=== PATIENT | female | born 1950 | race Caucasian/White ===

== ENCOUNTER 2017-10-10 07:46 | Emergency (ER) | payer MEDICARE ==
[~2017-10-10] VITALS: Ht 157.5 cm; Wt 50.0 kg
[~2017-10-10 07:46] MED LIST: ALB0.5UD IH; ALPR-623 PO; BUDE10.2 INH; GUAI100L97 PO; IPRA3AMP IH; SPIIN INH
[2017-10-10] MEDS ORDERED: DOXY100C43 PO (08:28)
[2017-10-10] MEDS ORDERED: PRED5TAB PO (08:28)
[2017-10-10] MEDS ORDERED: dexamethasone 4mg tablet PO ONE (08:30)
[2017-10-10] MEDS ORDERED: ipratropium/albuterol 3ml nebule NEB ONE (08:30)
[2017-10-10 09:26] VITALS: BP 142/81
== END 2017-10-10 09:28 | disposition home or self-care (01) ==
LOC: ER 07:47
DX: J44.1 Chronic obstructive pulmonary disease with (acute) exacerbation (principal); Z88.5 Allergy status to narcotic agent
CPT/HCPCS: 71046; 93005; 94640; 94760; 99284; J8540

== ENCOUNTER 2019-12-09 08:42 | Emergency (ER) | payer MEDICARE ==
[~2019-12-09] VITALS: Ht 157.5 cm; Wt 43.6 kg
[~2019-12-09 08:42] MED LIST changes: -IPRA3AMP IH; +IPRA3AMP31 IH; +PRED5TAB PO
[2019-12-09 08:50] VITALS: BP 166/102
--- NOTE | 2019-12-09 10:02 | NUR ---
Pt complains of rt ear pain and phlem in her throat that has not resolved for approx 1 month.
[2019-12-09] MEDS ORDERED: PRED20TA PO (10:41)
[2019-12-09] MEDS ORDERED: DOXY100C77 PO (10:41)
== END 2019-12-09 11:48 | disposition home or self-care (01) ==
LOC: ER 08:42
DX: J44.1 Chronic obstructive pulmonary disease with (acute) exacerbation (principal); Z20.828 Contact with and (suspected) exposure to other viral communicable diseases; Z72.89 Other problems related to lifestyle; Z88.5 Allergy status to narcotic agent; Z79.899 Other long term (current) drug therapy; Z03.818 Encounter for observation for suspected exposure to other biological agents ruled out
CPT/HCPCS: 36415; 71045; 99284; U0003

== ENCOUNTER 2020-01-31 20:33 | Inpatient (IN) | payer MEDICARE ==
[~2020-01-31] VITALS: Ht 162.6 cm; Wt 44.5 kg
[~2020-01-31 20:33] MED LIST changes: -APIX5TAB3 PO; -ATOR40TA72 PO; -FLUT1BLS4 PO; -MONT10TA26 PO; -fentaNYL/PF 50MCG/1 ML 2ML syringe ONE; -iohexol 300mg/ml 100ml inj. ONE; -methylPREDNISolone sod succ 125mg/2ml vial IV ONE; -midazolam 2 mg/2 ml injection ONE; -racepinephrine 11.25mg/0.5ml nebule IH ONE
[2020-01-31] MEDS ORDERED: normal saline 1000ml 1,000 ML IV SCH (21:59)
[2020-01-31 22:00] VITALS: BP 95/53
[2020-01-31] MEDS ORDERED: LIDOcaine 2% 10ml TOPICAL JELLY (Urojet) TP ONE (22:00)
[2020-01-31] MEDS ORDERED: potassium Cl 20 mEq SR tablet PO PRN ×2 (22:00)
[2020-01-31] MEDS ORDERED: acetaminophen 650mg rectal suppository RC PRN (22:00)
[2020-01-31] MEDS ORDERED: acetaminophen 325mg tablet PO PRN ×2 (22:00)
[2020-01-31] MEDS ORDERED: magnesium hydroxide 30ml (MOM) UD suspension PO PRN (22:00)
[2020-01-31] MEDS ORDERED: morphine 4 MG/ML inj SYRINge IV PRN (22:00)
[2020-01-31] MEDS ORDERED: ondansetron/PF 4mg/2ml inj IV PRN (22:00)
--- NOTE | 2020-01-31 22:27 | NUR ---
Pt received in room 2044. Awake & alert. New tracheostomy #8 portex uncuffed. Secure with trach ties, On 40% cool aerosol face mask @ 8Liters oxygen flow. Lungs clear with decreased breath sounds. Peripheral IV # 20 left F/A LR infusing at 100ml/hr. Rhythm is sinus with PAC's. Radial/pedal pulses weak, capillary refill is brisk to all nail beds. Right F/A with #20G saline lock. Denies pain.Skin is intact. No distress. Addendum: 02/01/20 at 0354 by Perri Silva RN Oxygen is via humidified trach collar, not humidified face mask 40% FIO2.
[2020-01-31] MEDS: K, MAG and/or Phos replacement - Verify level? MC SCH (22:30)
--- NOTE | 2020-01-31 22:30 | NUR ---
Patient in room ICU 2044. I have received report from DENICE Dang RN and had the opportunity to ask questions and assume patient care. Pt transferred from [facility] S/P tracheostomy placement.
[2020-01-31 23:00] VITALS: BP 108/59
[2020-02-01] VITALS (24 sets, daily range): BP systolic 106–159; BP diastolic 59–82
--- NOTE | 2020-02-01 03:00 | NUR ---
Voided 300 ml via bedpan.
[2020-02-01] MEDS: morphine 2 MG/ML inj. syringe IV PRN ×3 (04:58→15:54)
[2020-02-01 05:11] LABS: BASOPHILS % (AUTO) 0.2 % (0-1); EOSINOPHILS % (AUTO) 0 % (0-6); HEMATOCRIT 40.9 % (35.0-45.0); HEMOGLOBIN 13.3 g/dl (12.0-16.0); LYMPHOCYTES # (AUTO) 0.4 X10'3 (1.1-4.8); MEAN CORPUSCULAR HEMOGLOBIN 30.6 PG (27.0-31.0); MEAN CORPUSCULAR HGB CONC 32.6 g/dL (33.0-36.5); MEAN PLATELET VOLUME 9.1 FL (7.4-10.4); MONOCYTES # (AUTO) 0.3 X10'3 (0-0.9); MONOCYTES % (AUTO) 3.3 % (2-12); NEUTROPHILS # (AUTO) 7.2 X10'3 (1.8-7.7); NEUTROPHILS % (AUTO) 91.5 % (42-75); PLATELET COUNT 274 X10'3 (140-440); RED BLOOD COUNT 4.35 X10'6 (4.20-5.60); WHITE BLOOD COUNT 7.8 X10'3 (4.5-11.0)
[2020-02-01 05:36] LABS: ALANINE AMINOTRANSFERASE 23 U/L (12-78); ALBUMIN 3.1 G/DL (3.4-5.0); ALKALINE PHOSPHATASE 76 IU/L (46-116); ANION GAP 7 (8-16); ASPARTATE AMINO TRANSFERASE 16 U/L (10-37); BILIRUBIN,TOTAL 0.4 MG/DL (0.1-1.0); BLOOD UREA NITROGEN 16 MG/DL (7-18); BUN/CREATININE RATIO 21.6 (6.6-38.0); CHLORIDE 106 MMOL/L (99-107); CREATININE 0.74 MG/DL (0.40-0.90); GLUCOSE 116 MG/DL (70-104); PHOSPHORUS 4.3 MG/DL (2.3-4.5); POTASSIUM 4.7 MMOL/L (3.5-5.1); SODIUM 142 MMOL/L (135-145); TOTAL CARBON DIOXIDE 29.4 MMOL/L (24-32); TOTAL PROTEIN 6.3 G/DL (6.4-8.2); eGFR 77 ML/MIN
--- NOTE | 2020-02-01 06:10 | NUR ---
Received report from Perri SHARIF, [facility].
--- NOTE | 2020-02-01 06:15 | NUR ---
Problems reprioritized. Patient report given, questions answered & plan of care reviewed with Collette SHARIF.
[2020-02-01] MEDS: K, MAG and/or Phos replacement - Verify level? MC SCH (06:58)
--- NOTE | 2020-02-01 07:50 | NUR ---
Dr. Yovani diaz, received orders.
[2020-02-01] MEDS ORDERED: dextrose 5%-normal saline 1,000 ML IV SCH (08:25)
--- NOTE | 2020-02-01 08:40 | NUR ---
CALLED DR. JASSO TO MAKE AWARE OF CUFF INFLATION ORDER NEEDS. DIRECTED STAFF TO CALL THE WHO PERFORMED HER SURGERY. MADE DR. GALEAS AWARE.
[2020-02-01] MEDS ORDERED: ALPRAZolam 0.25mg tablet PO PRN (09:10)
[2020-02-01] MEDS ORDERED: predniSONE 5mg tablet PO SCH (09:10)
[2020-02-01] MEDS ORDERED: albuterol 2.5 MG/3 ML nebule NEB PRN (09:10)
[2020-02-01] MEDS: pantoprazole 40 MG vial IV SCH (09:12)
--- NOTE | 2020-02-01 10:23 | NUR ---
PLACED CORPAK AT THIS TIME, TOLERATED WELL, PENDING XRAY TO CONFIRM PLACEMENT.
[2020-02-01] MEDS ORDERED: MONT10TA26 PO (10:33)
[2020-02-01] MEDS ORDERED: ATOR40TA72 PO (10:33)
[2020-02-01] MEDS ORDERED: APIX5TAB3 PO (10:34)
[2020-02-01] MEDS ORDERED: FLUT1BLS4 PO (10:39)
[2020-02-01] MEDS ORDERED: BUDE10.2 INH (10:40)
[2020-02-01] MEDS ORDERED: acetaminophen 325mg tablet CORPAK PRN (10:47)
[2020-02-01] MEDS ORDERED: ALPRAZolam 0.25mg tablet CORPAK PRN (10:47)
[2020-02-01] MEDS ORDERED: potassium Cl 20 mEq SR tablet CORPAK PRN ×2 (10:48)
[2020-02-01] MEDS ORDERED: magnesium hydroxide 30ml (MOM) UD suspension CORPAK PRN (10:48)
[2020-02-01 11:55] LABS: PREALBUMIN 20.5 MG/DL (19-36)
--- NOTE | 2020-02-01 12:57 | NUR ---
PAGED XRAY TO COME PERFORM REPEAT KUB FOR CORPAK PLACEMENT.
--- NOTE | 2020-02-01 13:16 | NUR ---
Tube feeding consult. Patient pending corpak placement for nutrition. She is s/p tracheostomy d/t subglottic stenosis. Pending transfer to [facility] when bed available. Recommend: 1. Pending corpak placement, when placed and confirmed recommend continuous tube feeding using Jevity 1.2 at 50 ml/hr. Start at 30 ml and advance by 20 ml q 8 hours to goal rate. Will provide total of 1200 ml, 1440 ml, 67 g protein, 968 ml. 2. Prealbumin q saturday and 3. daily wts 2. additional water flush 100 ml q 4 hours 3. Prealbumin q saturday/, daily weights Addendum: 02/01/20 at [address] Amended: Links added.
[2020-02-01] MEDS ORDERED: albuterol 2.5 MG/3 ML nebule NEB SCH (15:00)
[2020-02-01] MEDS: ipratropium/albuterol 3ml nebule IH SCH ×2 (15:08→20:50)
[2020-02-01] MEDS ORDERED: predniSONE 5mg tablet PO STA (15:19)
[2020-02-01] MEDS ORDERED: predniSONE 5mg tablet CORPAK ONE (15:25)
[2020-02-01] MEDS: guaiFENesin 200mg/10ml UD cup CORPAK SCH ×2 (15:26→20:43)
--- NOTE | 2020-02-01 15:40 | NUR ---
CONFIRMED CORRECT PLACEMENT VIA XRAY, AUSCULTATED ABDOMEN AND CHECKED PLACEMENT WITH ZERO RESIDUAL ON CORPAK, STARTED JEVITY 1.2 @ 30 ML/HR VIA CORPAK AT THIS TIME, WILL CONT. TO MONITOR.
--- NOTE | 2020-02-01 16:13 | NUR ---
OFFERED BSC TO PATIENT, DENIES NEED TO USE. WILL CONT. TO MONITOR. PATIENT HAS HAD AN ESTIMATED 300 ML OUT VIA BSC.
--- NOTE | 2020-02-01 16:27 | NUR ---
SPOKE WITH DR. GALEAS, CLARIFIED IVF'S NECESSITY IN ADDITION TO TF. DISCONTINUED D5NS AT THIS TIME.
--- NOTE | 2020-02-01 18:11 | NUR ---
Patient in room ICU 2044. I have received report from Collette SHARIF and had the opportunity to ask questions and assume patient care. Pt received awake & alert. On 30% FIO2 via humidified trach collar. #8 portex tracheostomy is un cuffed. Oxygen saturation is 99% RR 20/min. Suctioned via trach with inline catheter, secretions are stringy bloody small amount. Cough is strong. Rhythm is Sinus Hr 90/min. Corpak to right nares with Jevity 1.2 enteric feedings at 30ml/hr. HOB elevated 40 degrees. No distress at change of shift.
--- NOTE | 2020-02-01 18:15 | NUR ---
GAVE REPORT TO ALAN SHARIF, TRANSFERRED CARE.
--- NOTE | 2020-02-01 19:00 | NUR ---
Suctioned for small amount of thin blood tinged secretions. Strong cough. Saturates 99% on 30 % FIO2 via humidified trach collar.
[2020-02-01] MEDS ORDERED: non-formulary drug (Budesonide/Formoterol Fumarate (Symbicort 160-4.5 Mcg Inhaler) 2 PUFFS INH SCH (20:00)
[2020-02-01] MEDS: montelukast 10mg tablet CORPAK SCH (20:42)
[2020-02-01] MEDS: budesonide 0.5mg/2ml UD nebule IH SCH (20:50)
[2020-02-02] VITALS (17 sets, daily range): BP systolic 100–155; BP diastolic 57–89
[2020-02-02] MEDS: guaiFENesin 200mg/10ml UD cup CORPAK SCH ×5 (02:00→20:39)
--- NOTE | 2020-02-02 03:00 | NUR ---
Up to BSC voided 300ml. Tolerated activity well, independent.
[2020-02-02] MEDS: ipratropium/albuterol 3ml nebule IH SCH ×4 (03:27→20:31)
[2020-02-02] MEDS: acetaminophen 325mg tablet CORPAK PRN ×2 (04:42→17:28)
--- NOTE | 2020-02-02 04:47 | NUR ---
Slept for short intervals during the night. Maintains oxygen saturations 99% on 30% FIO2 via humidified trach collar. Strong cough producing pale yellow sputum. Remains in sinus rhythm with a noted PVC. Tolerating tube feedings @ goal rate, aspiration precautions observed. Up to BSC x2 during the night to urinate, tolerated activity well. C/O mild headache tylenol given.
[2020-02-02 05:37] LABS: ALANINE AMINOTRANSFERASE 21 U/L (12-78); ALBUMIN/GLOBULIN RATIO 1.1 (1.1-1.5); ALKALINE PHOSPHATASE 66 IU/L (46-116); ANION GAP 5 (8-16); ASPARTATE AMINO TRANSFERASE 13 U/L (10-37); BILIRUBIN,TOTAL 0.5 MG/DL (0.1-1.0); BLOOD UREA NITROGEN 12 MG/DL (7-18); BUN/CREATININE RATIO 17.9 (6.6-38.0); CALCIUM 8.5 MG/DL (8.5-10.1); CHLORIDE 107 MMOL/L (99-107); CREATININE 0.67 MG/DL (0.40-0.90); GLUCOSE 110 MG/DL (70-104); MAGNESIUM 2.1 MG/DL (1.5-2.4); POTASSIUM 4.1 MMOL/L (3.5-5.1); SODIUM 142 MMOL/L (135-145); TOTAL CARBON DIOXIDE 29.9 MMOL/L (24-32); TOTAL PROTEIN 5.8 G/DL (6.4-8.2); eGFR 87 ML/MIN
[2020-02-02 05:58] LABS: BASOPHILS % (AUTO) 0.1 % (0-1); EOSINOPHILS % (AUTO) 0.1 % (0-6); HEMATOCRIT 38.7 % (35.0-45.0); HEMOGLOBIN 12.5 g/dl (12.0-16.0); LYMPHOCYTES # (AUTO) 0.7 X10'3 (1.1-4.8); LYMPHOCYTES % (AUTO) 6.2 % (21-51); MEAN CORPUSCULAR HEMOGLOBIN 30.6 PG (27.0-31.0); MEAN CORPUSCULAR HGB CONC 32.4 g/dL (33.0-36.5); MEAN CORPUSCULAR VOLUME 94.4 FL (78-98); MONOCYTES # (AUTO) 0.8 X10'3 (0-0.9); NEUTROPHILS # (AUTO) 10.4 X10'3 (1.8-7.7); NEUTROPHILS % (AUTO) 86.6 % (42-75); PLATELET COUNT 242 X10'3 (140-440); RED CELL DISTRIBUTION WIDTH 17.4 % (11.5-14.5)
--- NOTE | 2020-02-02 06:20 | NUR ---
Received report from Perri SHARIF, [facility].
--- NOTE | 2020-02-02 06:23 | NUR ---
Problems reprioritized. Patient report given, questions answered & plan of care reviewed with Collette SHAIRF.
--- NOTE | 2020-02-02 07:20 | NUR ---
SPOKE TO DR. GALEAS, MADE HIM AWARE THAT RECEIVING [facility] IS REQUIRING A COVID TEST PRIOR TO TRANSFER.
[2020-02-02] MEDS ORDERED: non-formulary drug (Tiotropium Bromide (SPIRIVA inhaler) 1 CAP) INH SCH (08:00)
[2020-02-02] MEDS: K, MAG and/or Phos replacement - Verify level? MC SCH (08:00)
[2020-02-02] MEDS: budesonide 0.5mg/2ml UD nebule IH SCH ×2 (08:09→20:31)
[2020-02-02] MEDS: pantoprazole 40 MG vial IV SCH (08:09)
[2020-02-02] MEDS: predniSONE 5mg tablet CORPAK SCH (08:09)
--- NOTE | 2020-02-02 08:33 | NUR ---
IMPROVEMENT NOTED TO PATIENTS SECRETIONS, NOTED CHANGE FROM SEROSANG IN COLOR TO RAYMOND/YELLOW. NOTED SUCTIONING IS NOT FREQUENT YESTERDAY AND O2 IS WEENING DOWN.
[2020-02-02] MEDS ORDERED: apixaban 5mg tablet PO SCH (10:30)
[2020-02-02] MEDS ORDERED: atorvastatin 20mg tablet PO SCH (10:31)
[2020-02-02] MEDS: levoFLOXACIN 500mg tablet PO ONE ×2 (10:33→11:44)
--- NOTE | 2020-02-02 12:20 | NUR ---
GAVE REPORT TO JEREMY SHARIF AT THIS TIME ON PCU, PATIENT TRANSFERRING TO ROOM3 018a
--- NOTE | 2020-02-02 12:36 | NUR ---
Patient in room ICU 2044. I have received report from Collette SHARIF and had the opportunity to ask questions and assume patient care.
--- NOTE | 2020-02-02 18:47 | NUR ---
Problems reprioritized. Patient report given, questions answered & plan of care reviewed with KOLE Guzman. Patient stable at transfer of care.
[2020-02-02] MEDS: montelukast 10mg tablet CORPAK SCH (20:39)
[2020-02-02] MEDS: apixaban 5mg tablet CORPAK SCH (20:39)
[2020-02-03] MEDS: guaiFENesin 200mg/10ml UD cup CORPAK SCH ×4 (01:50→21:05)
[2020-02-03] MEDS: ipratropium/albuterol 3ml nebule IH SCH ×4 (02:33→21:35)
[2020-02-03 03:00] VITALS: BP 141/79
[2020-02-03] MEDS: acetaminophen 325mg tablet CORPAK PRN ×2 (03:07→22:06)
[2020-02-03 06:00] VITALS: BP 117/65
[2020-02-03 06:03] LABS: BASOPHILS % (AUTO) 0.3 % (0-1); EOSINOPHILS # (AUTO) 0.1 X10'3 (0-0.9); EOSINOPHILS % (AUTO) 0.8 % (0-6); HEMATOCRIT 38.4 % (35.0-45.0); HEMOGLOBIN 12.7 g/dl (12.0-16.0); LYMPHOCYTES # (AUTO) 1.1 X10'3 (1.1-4.8); LYMPHOCYTES % (AUTO) 12.1 % (21-51); MEAN CORPUSCULAR HEMOGLOBIN 31.2 PG (27.0-31.0); MEAN CORPUSCULAR VOLUME 94.7 FL (78-98); MEAN PLATELET VOLUME 9.4 FL (7.4-10.4); MONOCYTES # (AUTO) 0.9 X10'3 (0-0.9); MONOCYTES % (AUTO) 9.2 % (2-12); NEUTROPHILS # (AUTO) 7.4 X10'3 (1.8-7.7); NEUTROPHILS % (AUTO) 77.6 % (42-75); PLATELET COUNT 221 X10'3 (140-440); RED BLOOD COUNT 4.05 X10'6 (4.20-5.60); RED CELL DISTRIBUTION WIDTH 17.2 % (11.5-14.5); WHITE BLOOD COUNT 9.5 X10'3 (4.5-11.0)
[2020-02-03 06:26] LABS: ALANINE AMINOTRANSFERASE 20 U/L (12-78); ALBUMIN 2.8 G/DL (3.4-5.0); ALBUMIN/GLOBULIN RATIO 0.9 (1.1-1.5); ALKALINE PHOSPHATASE 66 IU/L (46-116); ANION GAP 6 (8-16); ASPARTATE AMINO TRANSFERASE 12 U/L (10-37); BILIRUBIN,TOTAL 0.5 MG/DL (0.1-1.0); BLOOD UREA NITROGEN 10 MG/DL (7-18); BUN/CREATININE RATIO 14.9 (6.6-38.0); CALCIUM 8.3 MG/DL (8.5-10.1); CHLORIDE 106 MMOL/L (99-107); CREATININE 0.67 MG/DL (0.40-0.90); GLUCOSE 139 MG/DL (70-104); POTASSIUM 3.5 MMOL/L (3.5-5.1); SODIUM 141 MMOL/L (135-145); TOTAL CARBON DIOXIDE 28.8 MMOL/L (24-32); eGFR 87 ML/MIN
--- NOTE | 2020-02-03 06:31 | NUR ---
Patient in room PCU 3022. I have received report from Christy SHARIF and had the opportunity to ask questions and assume patient care.
[2020-02-03] MEDS: budesonide 0.5mg/2ml UD nebule IH SCH ×2 (07:55→21:35)
[2020-02-03] MEDS: K, MAG and/or Phos replacement - Verify level? MC SCH (08:00)
[2020-02-03] MEDS: pantoprazole 40 MG vial IV SCH (08:13)
[2020-02-03] MEDS: atorvastatin 20mg tablet CORPAK SCH (08:14)
[2020-02-03] MEDS: apixaban 5mg tablet CORPAK SCH ×2 (08:14→21:04)
[2020-02-03] MEDS: predniSONE 5mg tablet CORPAK SCH (08:14)
[2020-02-03] MEDS: morphine 2 MG/ML inj. syringe IV PRN (08:15)
[2020-02-03 11:00] VITALS: BP 112/64
[2020-02-03] MEDS ORDERED: levoFLOXACIN 500mg tablet CORPAK SCH (11:00)
[2020-02-03 18:00] VITALS: BP 146/73
--- NOTE | 2020-02-03 18:26 | NUR ---
Patient in room PCU 3022. I have received report from Andreas SHARIF and had the opportunity to ask questions and assume patient care.
--- NOTE | 2020-02-03 18:27 | NUR ---
Problems reprioritized. Patient report given, questions answered & plan of care reviewed with Hector SHARIF.
[2020-02-03] MEDS: lactobacillus rhamnosus 10,000 MMU CELLS/CAPSULE PO SCH (21:05)
[2020-02-03] MEDS: montelukast 10mg tablet CORPAK SCH (21:05)
[2020-02-03 22:00] VITALS: BP 138/74
[2020-02-04 02:19] VITALS: BP 138/74
[2020-02-04] MEDS: guaiFENesin 200mg/10ml UD cup CORPAK SCH ×4 (02:23→20:00)
[2020-02-04] MEDS: ipratropium/albuterol 3ml nebule IH SCH ×3 (03:06→20:59)
[2020-02-04 05:51] LABS: BASOPHILS % (AUTO) 0.4 % (0-1); EOSINOPHILS # (AUTO) 0.1 X10'3 (0-0.9); EOSINOPHILS % (AUTO) 1.5 % (0-6); HEMATOCRIT 40.2 % (35.0-45.0); HEMOGLOBIN 13.1 g/dl (12.0-16.0); LYMPHOCYTES # (AUTO) 1.2 X10'3 (1.1-4.8); LYMPHOCYTES % (AUTO) 14.8 % (21-51); MEAN CORPUSCULAR HEMOGLOBIN 31.3 PG (27.0-31.0); MEAN CORPUSCULAR HGB CONC 32.6 g/dL (33.0-36.5); MEAN CORPUSCULAR VOLUME 95.8 FL (78-98); MEAN PLATELET VOLUME 9.3 FL (7.4-10.4); MONOCYTES # (AUTO) 0.9 X10'3 (0-0.9); NEUTROPHILS % (AUTO) 72.3 % (42-75); PLATELET COUNT 242 X10'3 (140-440); RED CELL DISTRIBUTION WIDTH 17.2 % (11.5-14.5); WHITE BLOOD COUNT 8.3 X10'3 (4.5-11.0)
[2020-02-04 06:00] VITALS: BP 132/71
[2020-02-04 06:00] LABS: ALANINE AMINOTRANSFERASE 18 U/L (12-78); ALBUMIN 2.8 G/DL (3.4-5.0); ALBUMIN/GLOBULIN RATIO 0.9 (1.1-1.5); ALKALINE PHOSPHATASE 67 IU/L (46-116); ANION GAP 3 (8-16); ASPARTATE AMINO TRANSFERASE 12 U/L (10-37); BILIRUBIN,TOTAL 0.5 MG/DL (0.1-1.0); BLOOD UREA NITROGEN 11 MG/DL (7-18); BUN/CREATININE RATIO 14.3 (6.6-38.0); CALCIUM 8.5 MG/DL (8.5-10.1); CHLORIDE 104 MMOL/L (99-107); CREATININE 0.77 MG/DL (0.40-0.90); GLUCOSE 75 MG/DL (70-104); MAGNESIUM 2.1 MG/DL (1.5-2.4); PHOSPHORUS 3.8 MG/DL (2.3-4.5); POTASSIUM 3.6 MMOL/L (3.5-5.1); PREALBUMIN 15.6 MG/DL (19-36); SODIUM 142 MMOL/L (135-145); TOTAL CARBON DIOXIDE 34.9 MMOL/L (24-32); eGFR 74 ML/MIN
--- NOTE | 2020-02-04 06:18 | NUR ---
Problems reprioritized. Patient report given, questions answered & plan of care reviewed with Astrid SHARIF.
--- NOTE | 2020-02-04 06:20 | NUR ---
Patient in room PCU 3022. I have received report from KOLE Young and had the opportunity to ask questions and assume patient care.
--- NOTE | 2020-02-04 06:55 | NUR ---
Patient in room PCU 3022. I have received report from Hector SHARIF and had the opportunity to ask questions and assume patient care.
[2020-02-04] MEDS: atorvastatin 20mg tablet CORPAK SCH (07:59)
[2020-02-04] MEDS: lactobacillus rhamnosus 10,000 MMU CELLS/CAPSULE PO SCH ×2 (07:59→21:47)
[2020-02-04] MEDS: apixaban 5mg tablet CORPAK SCH ×2 (07:59→21:47)
[2020-02-04] MEDS: predniSONE 5mg tablet CORPAK SCH (07:59)
[2020-02-04] MEDS: K, MAG and/or Phos replacement - Verify level? MC SCH (08:00)
[2020-02-04] MEDS: pantoprazole 40 MG vial IV SCH (08:00)
[2020-02-04] MEDS: budesonide 0.5mg/2ml UD nebule IH SCH ×2 (08:24→20:59)
[2020-02-04 11:00] VITALS: BP 110/60
[2020-02-04] MEDS: acetaminophen 325mg tablet CORPAK PRN ×2 (12:30→21:49)
[2020-02-04 15:00] VITALS: BP 126/71
[2020-02-04 18:00] VITALS: BP 125/81
--- NOTE | 2020-02-04 18:07 | NUR ---
Patient in room PCU 3022. I have received report from Astrid SHARIF and had the opportunity to ask questions and assume patient care.
--- NOTE | 2020-02-04 18:13 | NUR ---
Problems reprioritized. Patient report given, questions answered & plan of care reviewed with KOLE Young.
[2020-02-04] MEDS: montelukast 10mg tablet CORPAK SCH (21:47)
[2020-02-04 22:00] VITALS: BP 134/80
[2020-02-05 02:00] VITALS: BP 134/80
[2020-02-05] MEDS: guaiFENesin 200mg/10ml UD cup CORPAK SCH ×4 (02:00→20:43)
[2020-02-05] MEDS: ipratropium/albuterol 3ml nebule IH SCH ×4 (02:40→20:03)
[2020-02-05 05:28] LABS: BASOPHILS % (AUTO) 0.7 % (0-1); EOSINOPHILS # (AUTO) 0.1 X10'3 (0-0.9); EOSINOPHILS % (AUTO) 2.2 % (0-6); HEMATOCRIT 39.7 % (35.0-45.0); HEMOGLOBIN 12.7 g/dl (12.0-16.0); LYMPHOCYTES # (AUTO) 1.5 X10'3 (1.1-4.8); LYMPHOCYTES % (AUTO) 21.4 % (21-51); MEAN CORPUSCULAR HEMOGLOBIN 30.4 PG (27.0-31.0); MEAN CORPUSCULAR VOLUME 94.7 FL (78-98); MEAN PLATELET VOLUME 9.1 FL (7.4-10.4); MONOCYTES # (AUTO) 0.8 X10'3 (0-0.9); MONOCYTES % (AUTO) 11.2 % (2-12); NEUTROPHILS # (AUTO) 4.4 X10'3 (1.8-7.7); NEUTROPHILS % (AUTO) 64.5 % (42-75); PLATELET COUNT 256 X10'3 (140-440); RED BLOOD COUNT 4.19 X10'6 (4.20-5.60); RED CELL DISTRIBUTION WIDTH 16.5 % (11.5-14.5); WHITE BLOOD COUNT 6.8 X10'3 (4.5-11.0)
[2020-02-05 05:53] LABS: ALANINE AMINOTRANSFERASE 20 U/L (12-78); ALBUMIN 2.6 G/DL (3.4-5.0); ALBUMIN/GLOBULIN RATIO 0.8 (1.1-1.5); ALKALINE PHOSPHATASE 66 IU/L (46-116); ANION GAP 2 (8-16); ASPARTATE AMINO TRANSFERASE 13 U/L (10-37); BILIRUBIN,TOTAL 0.4 MG/DL (0.1-1.0); BLOOD UREA NITROGEN 13 MG/DL (7-18); BUN/CREATININE RATIO 17.3 (6.6-38.0); CALCIUM 8.6 MG/DL (8.5-10.1); CHLORIDE 104 MMOL/L (99-107); CREATININE 0.75 MG/DL (0.40-0.90); GLUCOSE 91 MG/DL (70-104); MAGNESIUM 2.1 MG/DL (1.5-2.4); PHOSPHORUS 3.7 MG/DL (2.3-4.5); POTASSIUM 4.2 MMOL/L (3.5-5.1); SODIUM 141 MMOL/L (135-145); TOTAL PROTEIN 5.8 G/DL (6.4-8.2); eGFR 76 ML/MIN
[2020-02-05 06:00] VITALS: BP 105/76
--- NOTE | 2020-02-05 06:00 | NUR ---
Patient in room PCU 3022. I have received report from Hector SHARIF and had the opportunity to ask questions and assume patient care.
--- NOTE | 2020-02-05 06:31 | NUR ---
Problems reprioritized. Patient report given, questions answered & plan of care reviewed with Radha SHARIF.
[2020-02-05] MEDS: budesonide 0.5mg/2ml UD nebule IH SCH ×2 (07:48→20:03)
[2020-02-05] MEDS: K, MAG and/or Phos replacement - Verify level? MC SCH (08:00)
[2020-02-05] MEDS: lactobacillus rhamnosus 10,000 MMU CELLS/CAPSULE PO SCH ×2 (08:25→20:41)
[2020-02-05] MEDS: pantoprazole 40 MG vial IV SCH (08:25)
[2020-02-05] MEDS: atorvastatin 20mg tablet CORPAK SCH (08:25)
[2020-02-05] MEDS: predniSONE 5mg tablet CORPAK SCH (08:26)
[2020-02-05] MEDS: apixaban 5mg tablet CORPAK SCH ×2 (08:26→20:41)
[2020-02-05 11:00] VITALS: BP 118/77
[2020-02-05 15:00] VITALS: BP 111/71
--- NOTE | 2020-02-05 15:20 | NUR ---
Reassessment: Pt previously tolerating TF at goal rate with GRV WNL however per MD notes Corpak came out last night. D/w RN who reports MD did not want Corpak to be replaced d/t planned BSS. Pt s/p BSS today with [facility] pureed food and thin liquids. PO diet has been advanced as such and pt documented with 50% PO intake first meal. Per RN pt tolerated with no issues. LB 02/03. Will continue to follow closely and monitor need for ONS pending further trends in PO intake. Recommend: 1. Continue pureed food with thin liquids per [facility] 2. Monitor need for ONS pending further trends in PO intake 3. Bowel care PRN 4. Scaled weights per rx Addendum: 02/05/20 at [address] Amended: Links added.
[2020-02-05 18:00] VITALS: BP 116/65
--- NOTE | 2020-02-05 18:00 | NUR ---
Problems reprioritized. Patient report given, questions answered & plan of care reviewed with Hector SHARIF.
--- NOTE | 2020-02-05 18:08 | NUR ---
Patient in room PCU 3022. I have received report from Isa SHARIF and had the opportunity to ask questions and assume patient care.
--- NOTE | 2020-02-05 18:15 | NUR ---
Problems reprioritized. Patient report given, questions answered & plan of care reviewed with Hector SHARIF.
[2020-02-05] MEDS: acetaminophen 325mg tablet CORPAK PRN (20:41)
[2020-02-05] MEDS: montelukast 10mg tablet CORPAK SCH (20:42)
[2020-02-05 22:00] VITALS: BP 144/92
[2020-02-06 02:00] VITALS: BP 131/83
[2020-02-06] MEDS: ipratropium/albuterol 3ml nebule IH SCH ×4 (02:12→19:59)
[2020-02-06] MEDS: guaiFENesin 200mg/10ml UD cup CORPAK SCH ×2 (02:51→08:11)
[2020-02-06 06:00] VITALS: BP 134/83
--- NOTE | 2020-02-06 06:10 | NUR ---
Problems reprioritized. Patient report given, questions answered & plan of care reviewed with Radha SHARIF.
--- NOTE | 2020-02-06 06:20 | NUR ---
Patient in room PCU 3022. I have received report from Hector SHARIF and had the opportunity to ask questions and assume patient care.
[2020-02-06 06:33] LABS: BASOPHILS % (AUTO) 0.8 % (0-1); EOSINOPHILS # (AUTO) 0.1 X10'3 (0-0.9); EOSINOPHILS % (AUTO) 2.6 % (0-6); HEMATOCRIT 37.9 % (35.0-45.0); HEMOGLOBIN 12.5 g/dl (12.0-16.0); LYMPHOCYTES # (AUTO) 1.5 X10'3 (1.1-4.8); LYMPHOCYTES % (AUTO) 26.4 % (21-51); MEAN CORPUSCULAR HEMOGLOBIN 30.9 PG (27.0-31.0); MEAN CORPUSCULAR HGB CONC 32.9 g/dL (33.0-36.5); MEAN CORPUSCULAR VOLUME 93.9 FL (78-98); MEAN PLATELET VOLUME 9.5 FL (7.4-10.4); MONOCYTES # (AUTO) 0.6 X10'3 (0-0.9); MONOCYTES % (AUTO) 11.2 % (2-12); NEUTROPHILS # (AUTO) 3.4 X10'3 (1.8-7.7); PLATELET COUNT 268 X10'3 (140-440); RED BLOOD COUNT 4.04 X10'6 (4.20-5.60); RED CELL DISTRIBUTION WIDTH 16.6 % (11.5-14.5); WHITE BLOOD COUNT 5.7 X10'3 (4.5-11.0)
[2020-02-06 06:48] LABS: ALANINE AMINOTRANSFERASE 18 U/L (12-78); ALBUMIN 2.7 G/DL (3.4-5.0); ALBUMIN/GLOBULIN RATIO 0.9 (1.1-1.5); ALKALINE PHOSPHATASE 65 IU/L (46-116); ANION GAP 1 (8-16); ASPARTATE AMINO TRANSFERASE 13 U/L (10-37); BILIRUBIN,TOTAL 0.5 MG/DL (0.1-1.0); BLOOD UREA NITROGEN 12 MG/DL (7-18); BUN/CREATININE RATIO 15.6 (6.6-38.0); CALCIUM 8.8 MG/DL (8.5-10.1); CHLORIDE 104 MMOL/L (99-107); CREATININE 0.77 MG/DL (0.40-0.90); GLUCOSE 85 MG/DL (70-104); MAGNESIUM 2.1 MG/DL (1.5-2.4); PHOSPHORUS 4.1 MG/DL (2.3-4.5); POTASSIUM 4.2 MMOL/L (3.5-5.1); SODIUM 140 MMOL/L (135-145); TOTAL CARBON DIOXIDE 34.6 MMOL/L (24-32); TOTAL PROTEIN 5.7 G/DL (6.4-8.2); eGFR 74 ML/MIN
[2020-02-06] MEDS: budesonide 0.5mg/2ml UD nebule IH SCH ×2 (07:47→19:58)
[2020-02-06] MEDS: K, MAG and/or Phos replacement - Verify level? MC SCH (08:00)
[2020-02-06] MEDS: acetaminophen 325mg tablet CORPAK PRN (08:10)
[2020-02-06] MEDS: pantoprazole 40 MG vial IV SCH (08:11)
[2020-02-06] MEDS: lactobacillus rhamnosus 10,000 MMU CELLS/CAPSULE PO SCH ×2 (08:11→20:32)
[2020-02-06] MEDS: apixaban 5mg tablet CORPAK SCH (08:11)
[2020-02-06] MEDS: predniSONE 5mg tablet CORPAK SCH (08:11)
[2020-02-06] MEDS: atorvastatin 20mg tablet CORPAK SCH (08:11)
[2020-02-06] MEDS ORDERED: ALPRAZolam 0.25mg tablet PO PRN (08:36)
[2020-02-06] MEDS ORDERED: acetaminophen 325mg tablet PO PRN (08:36)
[2020-02-06] MEDS ORDERED: potassium Cl 20 mEq SR tablet PO PRN ×2 (08:37)
[2020-02-06] MEDS ORDERED: magnesium hydroxide 30ml (MOM) UD suspension PO PRN (08:37)
[2020-02-06] MEDS ORDERED: predniSONE 5mg tablet PO SCH (08:37)
[2020-02-06 11:00] VITALS: BP 106/68
[2020-02-06] MEDS: guaiFENesin 200mg/10ml UD cup PO SCH ×2 (14:00→20:33)
[2020-02-06 15:00] VITALS: BP 114/66
[2020-02-06 18:00] VITALS: BP 132/70
--- NOTE | 2020-02-06 18:29 | NUR ---
Patient in room PCU 3022. I have received report from KOLE Garcia and had the opportunity to ask questions and assume patient care.
[2020-02-06] MEDS: acetaminophen 325mg tablet PO PRN (20:31)
[2020-02-06] MEDS: montelukast 10mg tablet PO SCH (20:32)
[2020-02-06] MEDS: apixaban 5mg tablet PO SCH (20:32)
[2020-02-06 22:00] VITALS: BP 133/77
[2020-02-07] MEDS: ipratropium/albuterol 3ml nebule IH SCH ×4 (02:32→20:17)
[2020-02-07] MEDS: guaiFENesin 200mg/10ml UD cup PO SCH ×4 (03:40→20:44)
[2020-02-07 06:12] LABS: BASOPHILS # (AUTO) 0.1 X10'3 (0-0.2); BASOPHILS % (AUTO) 0.8 % (0-1); EOSINOPHILS # (AUTO) 0.1 X10'3 (0-0.9); EOSINOPHILS % (AUTO) 1.3 % (0-6); HEMATOCRIT 36.5 % (35.0-45.0); HEMOGLOBIN 12.1 g/dl (12.0-16.0); LYMPHOCYTES # (AUTO) 1.6 X10'3 (1.1-4.8); LYMPHOCYTES % (AUTO) 24.4 % (21-51); MEAN CORPUSCULAR HEMOGLOBIN 30.8 PG (27.0-31.0); MEAN CORPUSCULAR HGB CONC 33.1 g/dL (33.0-36.5); MEAN CORPUSCULAR VOLUME 92.9 FL (78-98); MEAN PLATELET VOLUME 9.4 FL (7.4-10.4); MONOCYTES # (AUTO) 0.7 X10'3 (0-0.9); MONOCYTES % (AUTO) 10.3 % (2-12); NEUTROPHILS % (AUTO) 63.2 % (42-75); PLATELET COUNT 295 X10'3 (140-440); RED BLOOD COUNT 3.93 X10'6 (4.20-5.60); RED CELL DISTRIBUTION WIDTH 16.4 % (11.5-14.5); WHITE BLOOD COUNT 6.4 X10'3 (4.5-11.0)
[2020-02-07 06:20] LABS: ALANINE AMINOTRANSFERASE 19 U/L (12-78); ALBUMIN 2.7 G/DL (3.4-5.0); ALBUMIN/GLOBULIN RATIO 0.9 (1.1-1.5); ALKALINE PHOSPHATASE 62 IU/L (46-116); ANION GAP 4 (8-16); ASPARTATE AMINO TRANSFERASE 14 U/L (10-37); BILIRUBIN,TOTAL 0.3 MG/DL (0.1-1.0); BLOOD UREA NITROGEN 12 MG/DL (7-18); BUN/CREATININE RATIO 15.6 (6.6-38.0); CALCIUM 8.8 MG/DL (8.5-10.1); CHLORIDE 101 MMOL/L (99-107); CREATININE 0.77 MG/DL (0.40-0.90); GLUCOSE 88 MG/DL (70-104); PHOSPHORUS 4.1 MG/DL (2.3-4.5); POTASSIUM 3.4 MMOL/L (3.5-5.1); SODIUM 137 MMOL/L (135-145); TOTAL CARBON DIOXIDE 32.3 MMOL/L (24-32); TOTAL PROTEIN 5.7 G/DL (6.4-8.2); eGFR 74 ML/MIN
--- NOTE | 2020-02-07 06:22 | NUR ---
Problems reprioritized. Patient report given, questions answered & plan of care reviewed with KOLE Randle.
[2020-02-07 07:00] VITALS: BP 138/84
--- NOTE | 2020-02-07 07:22 | NUR ---
Patient in room PCU 3022. I have received report from Carin SHARIF and had the opportunity to ask questions and assume patient care. Pt. is resting comfortably in no distress.
[2020-02-07] MEDS: K, MAG and/or Phos replacement - Verify level? MC SCH (08:00)
[2020-02-07] MEDS: pantoprazole 40mg Tablet.DR PO SCH (08:29)
[2020-02-07] MEDS: apixaban 5mg tablet PO SCH ×2 (08:29→20:42)
[2020-02-07] MEDS: atorvastatin 20mg tablet PO SCH (08:30)
[2020-02-07] MEDS: lactobacillus rhamnosus 10,000 MMU CELLS/CAPSULE PO SCH ×2 (08:30→20:43)
[2020-02-07] MEDS: budesonide 0.5mg/2ml UD nebule IH SCH ×2 (09:45→20:17)
[2020-02-07] MEDS ORDERED: POTASSIUM BICARB 20meq eff tab 20 MEQ TABLET.EFF PO PRN (10:35)
[2020-02-07 11:00] VITALS: BP 109/56
[2020-02-07 15:00] VITALS: BP 111/67
[2020-02-07] MEDS: POTASSIUM BICARB 20meq eff tab 20 MEQ TABLET.EFF PO PRN ×2 (15:12→20:42)
[2020-02-07 18:00] VITALS: BP 106/55
--- NOTE | 2020-02-07 18:47 | NUR ---
Patient in room PCU 3022. I have received report from KOLE WHALEY and had the opportunity to ask questions and assume patient care.
[2020-02-07] MEDS: montelukast 10mg tablet PO SCH (20:44)
[2020-02-07 22:00] VITALS: BP 134/76
[2020-02-08 02:00] VITALS: BP 140/88
[2020-02-08] MEDS: guaiFENesin 200mg/10ml UD cup PO SCH ×4 (02:41→19:54)
[2020-02-08] MEDS: acetaminophen 325mg tablet PO PRN (02:42)
[2020-02-08] MEDS: ipratropium/albuterol 3ml nebule IH SCH ×4 (02:43→19:58)
--- NOTE | 2020-02-08 06:14 | NUR ---
Problems reprioritized. Patient report given, questions answered & plan of care reviewed with KOLE TURNER.
[2020-02-08 06:18] LABS: BASOPHILS # (AUTO) 0.1 X10'3 (0-0.2); BASOPHILS % (AUTO) 0.7 % (0-1); EOSINOPHILS # (AUTO) 0.1 X10'3 (0-0.9); EOSINOPHILS % (AUTO) 0.9 % (0-6); HEMATOCRIT 38.5 % (35.0-45.0); HEMOGLOBIN 12.7 g/dl (12.0-16.0); LYMPHOCYTES # (AUTO) 1.6 X10'3 (1.1-4.8); LYMPHOCYTES % (AUTO) 22.3 % (21-51); MEAN CORPUSCULAR HEMOGLOBIN 30.7 PG (27.0-31.0); MEAN CORPUSCULAR HGB CONC 32.9 g/dL (33.0-36.5); MEAN CORPUSCULAR VOLUME 93.2 FL (78-98); MEAN PLATELET VOLUME 9.6 FL (7.4-10.4); MONOCYTES # (AUTO) 0.7 X10'3 (0-0.9); NEUTROPHILS # (AUTO) 4.6 X10'3 (1.8-7.7); NEUTROPHILS % (AUTO) 66.1 % (42-75); PLATELET COUNT 321 X10'3 (140-440); RED BLOOD COUNT 4.14 X10'6 (4.20-5.60); RED CELL DISTRIBUTION WIDTH 16.5 % (11.5-14.5)
[2020-02-08 06:30] LABS: ALANINE AMINOTRANSFERASE 20 U/L (12-78); ALBUMIN 2.9 G/DL (3.4-5.0); ALKALINE PHOSPHATASE 64 IU/L (46-116); ANION GAP 4 (8-16); ASPARTATE AMINO TRANSFERASE 13 U/L (10-37); BILIRUBIN,TOTAL 0.3 MG/DL (0.1-1.0); BLOOD UREA NITROGEN 11 MG/DL (7-18); BUN/CREATININE RATIO 14.7 (6.6-38.0); CHLORIDE 105 MMOL/L (99-107); CREATININE 0.75 MG/DL (0.40-0.90); GLUCOSE 82 MG/DL (70-104); MAGNESIUM 2.1 MG/DL (1.5-2.4); PHOSPHORUS 3.6 MG/DL (2.3-4.5); POTASSIUM 4.3 MMOL/L (3.5-5.1); PREALBUMIN 18.2 MG/DL (19-36); SODIUM 141 MMOL/L (135-145); TOTAL CARBON DIOXIDE 32.5 MMOL/L (24-32); TOTAL PROTEIN 5.9 G/DL (6.4-8.2); eGFR 76 ML/MIN
--- NOTE | 2020-02-08 06:47 | NUR ---
Patient in room PCU 3022. I have received report from Holly SHARIF and had the opportunity to ask questions and assume patient care.
[2020-02-08 07:00] VITALS: BP 159/96
[2020-02-08] MEDS: K, MAG and/or Phos replacement - Verify level? MC SCH (08:00)
[2020-02-08] MEDS: lactobacillus rhamnosus 10,000 MMU CELLS/CAPSULE PO SCH ×2 (08:31→19:54)
[2020-02-08] MEDS: atorvastatin 20mg tablet PO SCH (08:31)
[2020-02-08] MEDS: apixaban 5mg tablet PO SCH ×2 (08:31→19:54)
[2020-02-08] MEDS: pantoprazole 40mg Tablet.DR PO SCH (08:31)
[2020-02-08] MEDS: budesonide 0.5mg/2ml UD nebule IH SCH ×2 (10:14→19:58)
--- NOTE | 2020-02-08 11:41 | NUR ---
Reassessment: Pt tolerating pureed/thins advanced to mechanical soft/chopped/heart healthy/thin liquids diet per [employer]/MD recs. PO ~25-50% avg meals w/ trach; decent given age/wt. Ensure Enlive BIDBD and ensure pudding added to lunches for additional protein/kcal needs. LBM 02/06. Noted wt change 44.5kg down from 45-48kg prior w/ no significant fluid balance changes via bed scale BMI changing from 18 to 16.8; unsure which wt most accurate. Will continue to monitor. Recommend: 1. Continue mechanical soft/HH/chopped/thin liquids per ST/MD recs 2. Ensure Enlive BIDBD; ensure pudding at lunches 3. Bowel care PRN 4. Scaled weights per rx Addendum: 02/08/20 at [address] Amended: Links added.
[2020-02-08 12:15] VITALS: BP 151/96
--- NOTE | 2020-02-08 12:18 | NUR ---
Problems reprioritized. Patient report given, questions answered & plan of care reviewed with Rossy SHARIF.
--- NOTE | 2020-02-08 12:27 | NUR ---
Patient in room U 3022. I have received report from and had the opportunity to ask questions and assume patient care. Addendum: 02/08/20 at 1227 by Allyssa Kauffman RN from [facility] SHARIF
[2020-02-08 15:00] VITALS: BP 157/86
[2020-02-08] MEDS: lactose-reduced food (Ensure Enlive) - 237ml bottle PO SCH (17:58)
[2020-02-08 18:00] VITALS: BP 131/87
--- NOTE | 2020-02-08 18:20 | NUR ---
Problems reprioritized. Patient report given, questions answered & plan of care reviewed with Frances SHARIF.
--- NOTE | 2020-02-08 18:30 | NUR ---
Patient in room PCU 3022. I have received report from KOLE TOUSSAINT and had the opportunity to ask questions and assume patient care.
[2020-02-08] MEDS: montelukast 10mg tablet PO SCH (19:54)
[2020-02-08 22:00] VITALS: BP 141/84
[2020-02-09 02:00] VITALS: BP 147/93
[2020-02-09] MEDS: guaiFENesin 200mg/10ml UD cup PO SCH ×2 (02:30→07:29)
[2020-02-09] MEDS: ipratropium/albuterol 3ml nebule IH SCH ×2 (02:35→07:49)
[2020-02-09 06:00] VITALS: BP 119/72
[2020-02-09 06:01] LABS: BASOPHILS # (AUTO) 0.1 X10'3 (0-0.2); BASOPHILS % (AUTO) 0.8 % (0-1); EOSINOPHILS # (AUTO) 0.1 X10'3 (0-0.9); EOSINOPHILS % (AUTO) 1.4 % (0-6); HEMATOCRIT 40.5 % (35.0-45.0); HEMOGLOBIN 13.3 g/dl (12.0-16.0); LYMPHOCYTES # (AUTO) 1.5 X10'3 (1.1-4.8); LYMPHOCYTES % (AUTO) 19.1 % (21-51); MEAN CORPUSCULAR HEMOGLOBIN 30.5 PG (27.0-31.0); MEAN CORPUSCULAR HGB CONC 32.8 g/dL (33.0-36.5); MEAN PLATELET VOLUME 9.3 FL (7.4-10.4); MONOCYTES # (AUTO) 0.8 X10'3 (0-0.9); MONOCYTES % (AUTO) 10.1 % (2-12); NEUTROPHILS # (AUTO) 5.4 X10'3 (1.8-7.7); NEUTROPHILS % (AUTO) 68.6 % (42-75); PLATELET COUNT 354 X10'3 (140-440); RED BLOOD COUNT 4.36 X10'6 (4.20-5.60); RED CELL DISTRIBUTION WIDTH 16.3 % (11.5-14.5); WHITE BLOOD COUNT 7.9 X10'3 (4.5-11.0)
[2020-02-09 06:08] LABS: ALANINE AMINOTRANSFERASE 24 U/L (12-78); ALKALINE PHOSPHATASE 67 IU/L (46-116); ANION GAP 2 (8-16); ASPARTATE AMINO TRANSFERASE 22 U/L (10-37); BILIRUBIN,TOTAL 0.4 MG/DL (0.1-1.0); BLOOD UREA NITROGEN 12 MG/DL (7-18); BUN/CREATININE RATIO 13.3 (6.6-38.0); CHLORIDE 102 MMOL/L (99-107); GLUCOSE 85 MG/DL (70-104); PHOSPHORUS 3.8 MG/DL (2.3-4.5); POTASSIUM 4.1 MMOL/L (3.5-5.1); SODIUM 136 MMOL/L (135-145); eGFR 62 ML/MIN
--- NOTE | 2020-02-09 06:19 | NUR ---
Patient in room PCU 3022. I have received report from Frances SHARIF and had the opportunity to ask questions and assume patient care.
--- NOTE | 2020-02-09 06:27 | NUR ---
Problems reprioritized. Patient report given, questions answered & plan of care reviewed with KOLE BROWNING.
[2020-02-09] MEDS: atorvastatin 20mg tablet PO SCH (07:29)
[2020-02-09] MEDS: lactobacillus rhamnosus 10,000 MMU CELLS/CAPSULE PO SCH (07:29)
[2020-02-09] MEDS: pantoprazole 40mg Tablet.DR PO SCH (07:30)
[2020-02-09] MEDS: apixaban 5mg tablet PO SCH (07:30)
[2020-02-09] MEDS: lactose-reduced food (Ensure Enlive) - 237ml bottle PO SCH (07:34)
[2020-02-09] MEDS: K, MAG and/or Phos replacement - Verify level? MC SCH (07:35)
[2020-02-09] MEDS: budesonide 0.5mg/2ml UD nebule IH SCH (07:49)
[2020-02-09] MEDS: acetaminophen 325mg tablet PO PRN (09:51)
[2020-02-09 11:00] VITALS: BP 112/85
--- NOTE | 2020-02-09 11:04 | NUR ---
flow manager notified RN that pharmacy picking technician time for the patient to transfer to [facility] would be 1PM, CM asked RN to notify family, RN asked patient who she would like RN to notify of transfer, patient stated that there was no need and that the patient would let them know.
--- NOTE | 2020-02-09 11:30 | NUR ---
Called report to Ramakrishna ALANIS and updated Ragini SHARIF on patients plan of care
--- NOTE | 2020-02-09 13:47 | NUR ---
Stable for transfer per MD orders, tele monitor discontinued, all belongings collected and sent with the patient, left the unit at 1347 in [facility] with transport personnel.
== END 2020-02-09 13:47 | DRG 202 ==
LOC: ICU 2S 21:52 → PCU 3S 02-02 13:05
PROVIDERS: ADMIT Internal Medicine Critical Care Medicine; ATTEND Internal Medicine Critical Care Medicine
DX: J39.8 Other specified diseases of upper respiratory tract (principal); J96.00 Acute respiratory failure, unspecified whether with hypoxia or hypercapnia; R13.10 Dysphagia, unspecified; J44.9 Chronic obstructive pulmonary disease, unspecified; Z79.01 Long term (current) use of anticoagulants; Z79.899 Other long term (current) drug therapy; Z87.891 Personal history of nicotine dependence; Z88.5 Allergy status to narcotic agent
CPT/HCPCS: 36415; 74018; 76937; 80053; 82948; 83735; 84100; 84134; 85025; 87081; 92508; 92616; 93005; 94640; 94760; 97116; 97161; 97530; C9113; G0378; J2270; J7030; J7042; J7512; J7626

== ENCOUNTER → 2020-01-31 | Emergency (ER) | payer MEDICARE ==
[~2020-01-31] VITALS: Ht 157.5 cm; Wt 45.5 kg
[~2020-01-31] MED LIST changes: +APIX5TAB3 PO; +ATOR40TA72 PO; +FLUT1BLS4 PO; +MONT10TA26 PO; +fentaNYL/PF 50MCG/1 ML 2ML syringe ONE; +iohexol 300mg/ml 100ml inj. ONE; +methylPREDNISolone sod succ 125mg/2ml vial IV ONE; +midazolam 2 mg/2 ml injection ONE; +racepinephrine 11.25mg/0.5ml nebule IH ONE
[2020-01-31 12:48] LABS: BASOPHILS # (AUTO) 0.1 X10'3 (0-0.2); BASOPHILS % (AUTO) 0.5 % (0-1); EOSINOPHILS # (AUTO) 0.1 X10'3 (0-0.9); HEMOGLOBIN 13.8 g/dl (12.0-16.0); LYMPHOCYTES # (AUTO) 1.5 X10'3 (1.1-4.8); MEAN CORPUSCULAR HEMOGLOBIN 30.7 PG (27.0-31.0); MEAN CORPUSCULAR HGB CONC 32.8 g/dL (33.0-36.5); MEAN CORPUSCULAR VOLUME 93.7 FL (78-98); MONOCYTES # (AUTO) 0.8 X10'3 (0-0.9); MONOCYTES % (AUTO) 6.8 % (2-12); NEUTROPHILS # (AUTO) 9.8 X10'3 (1.8-7.7); NEUTROPHILS % (AUTO) 79.7 % (42-75); PLATELET COUNT 263 X10'3 (140-440); RED BLOOD COUNT 4.48 X10'6 (4.20-5.60); WHITE BLOOD COUNT 12.3 X10'3 (4.5-11.0)
[2020-01-31 12:55] LABS: PARTIAL THROMBOPLASTIN TIME 28 SECONDS (22-32)
[2020-01-31 12:59] LABS: ALANINE AMINOTRANSFERASE 26 U/L (12-78); ALBUMIN 3.9 G/DL (3.4-5.0); ALBUMIN/GLOBULIN RATIO 1.1 (1.1-1.5); ALKALINE PHOSPHATASE 87 IU/L (46-116); ANION GAP 6 (8-16); ASPARTATE AMINO TRANSFERASE 19 U/L (10-37); BILIRUBIN,TOTAL 0.6 MG/DL (0.1-1.0); BLOOD UREA NITROGEN 12 MG/DL (7-18); BUN/CREATININE RATIO 14.6 (6.6-38.0); CALCIUM 8.9 MG/DL (8.5-10.1); CHLORIDE 102 MMOL/L (99-107); CREATININE 0.82 MG/DL (0.40-0.90); GLUCOSE 107 MG/DL (70-104); POTASSIUM 3.7 MMOL/L (3.5-5.1); SODIUM 140 MMOL/L (135-145); TOTAL PROTEIN 7.4 G/DL (6.4-8.2); eGFR 69 ML/MIN
[2020-01-31 18:12] LABS: CLARITY,URINE CLEAR (Clear); COLOR,URINE YELLOW (Yellow); GLUCOSE, URINE NEGATIVE (Neg); KETONES,URINE 15 mg/dl (Neg); LEUKOCYTE ESTERASE ,URINE NEGATIVE (Neg); NITRITES, URINE NEGATIVE (Neg); OCCULT BLOOD,URINE NEGATIVE (Neg); PROTEIN,URINE NEGATIVE (Neg); UROBILINOGEN,URINE 0.2 E.U/dL (0.2-1.0)
[2020-01-31 18:13] LABS: UA COLLECTION TYPE URINAL
[2020-01-31 18:49] VITALS: BP 143/105
--- NOTE | 2020-01-31 21:23 | NUR ---
1914-Pt. being transferred to [facility] for surgical trach placement via ALS ambulance and KOLE GALDAMEZ from [facility] ICU. Pt. will be returned to [facility] ICU after procedure. Addendum: 01/31/20 at 5 by NIRAV 1914 Hours
--- NOTE | 2020-01-31 22:00 | NUR ---
Pt returned from [facility] to room 2044 ICU
== END | disposition home or self-care (01) ==
LOC: ER 12:00
DX: R59.9 Enlarged lymph nodes, unspecified (principal); R22.1 Localized swelling, mass and lump, neck; R06.03 Acute respiratory distress; J98.8 Other specified respiratory disorders; R06.1 Stridor; J38.4 Edema of larynx; J38.6 Stenosis of larynx; J44.9 Chronic obstructive pulmonary disease, unspecified; Z72.89 Other problems related to lifestyle; Z88.5 Allergy status to narcotic agent; Z79.01 Long term (current) use of anticoagulants; Z79.899 Other long term (current) drug therapy
CPT/HCPCS: 36415; 70491; 71045; 72040; 80053; 81003; 83605; 84145; 84484; 85025; 85610; 85730; 87040; 93005; 94640; 96374; 99285; J2250; J2930; J3010; Q9967; 94760

== ENCOUNTER 2020-02-18 10:10 | Outpatient (CLI) | payer OTHER ==
[~2020-02-18 10:10] MED LIST changes: -ALPR-623 PO; +APIX5TAB3 PO; +ATOR40TA72 PO; -BUDE10.2 INH; +FLUT1BLS4 PO; +MONT10TA26 PO; -SPIIN INH
== END 2020-02-18 23:59 | disposition home or self-care (01) ==
LOC: 64 CT 10:10
PROVIDERS: ATTEND Internal Medicine Critical Care Medicine
DX: R51 Headache (principal)
CPT/HCPCS: 70450

== ENCOUNTER 2021-03-30 03:31 | Inpatient (IN) | payer MEDICARE ==
[~2021-03-30] VITALS: Ht 157.5 cm; Wt 41.8 kg
[~2021-03-30 03:31] MED LIST changes: +BUDE0.5A11 NEB; -MONT10TA26 PO; +MONT10TA32 PO; +PANT40TA54 PO; +UMEC1DIS PO
[2021-03-30] MEDS ORDERED: dexamethasone sod phosphate 10mg/ml inj IV STA (04:00)
[2021-03-30] MEDS ORDERED: racepinephrine 11.25mg/0.5ml nebule IH ONE (04:00)
[2021-03-30] MEDS ORDERED: normal saline 1000ml 1,000 ML IV ONE (04:05)
[2021-03-30] MEDS ORDERED: racepinephrine 11.25mg/0.5ml nebule ONE (04:22)
[2021-03-30 04:49] LABS: BASOPHILS % (AUTO) 0.4 % (0-1); EOSINOPHILS # (AUTO) 0.1 X10'3 (0-0.9); HEMATOCRIT 29.2 % (35.0-45.0); HEMOGLOBIN 8.7 g/dl (12.0-16.0); LYMPHOCYTES # (AUTO) 0.8 X10'3 (1.1-4.8); LYMPHOCYTES % (AUTO) 8.6 % (21-51); MEAN CORPUSCULAR HEMOGLOBIN 25.7 PG (27.0-31.0); MEAN CORPUSCULAR HGB CONC 29.7 g/dL (33.0-36.5); MEAN CORPUSCULAR VOLUME 86.6 FL (78-98); MEAN PLATELET VOLUME 8.9 FL (7.4-10.4); MONOCYTES # (AUTO) 0.8 X10'3 (0-0.9); MONOCYTES % (AUTO) 8.4 % (2-12); NEUTROPHILS # (AUTO) 7.5 X10'3 (1.8-7.7); NEUTROPHILS % (AUTO) 81.6 % (42-75); PLATELET COUNT 232 X10'3 (140-440); RED BLOOD COUNT 3.37 X10'6 (4.20-5.60); RED CELL DISTRIBUTION WIDTH 16.7 % (11.5-14.5); WHITE BLOOD COUNT 9.2 X10'3 (4.5-11.0)
[2021-03-30 05:23] LABS: ALANINE AMINOTRANSFERASE 9 U/L (12-78); ALBUMIN 1.9 G/DL (3.4-5.0); ALBUMIN/GLOBULIN RATIO 0.6 (1.1-1.5); ALKALINE PHOSPHATASE 80 IU/L (46-116); ANION GAP 6 (8-16); ASPARTATE AMINO TRANSFERASE 18 U/L (10-37); BILIRUBIN,TOTAL 0.3 MG/DL (0.1-1.0); BLOOD UREA NITROGEN 7 MG/DL (7-18); BUN/CREATININE RATIO 23.3 (6.6-38.0); CALCIUM 6.9 MG/DL (8.5-10.1); CHLORIDE 112 MMOL/L (99-107); GLUCOSE 83 MG/DL (70-104); SODIUM 147 MMOL/L (135-145); TOTAL CARBON DIOXIDE 29.5 MMOL/L (24-32); eGFR > 90 ML/MIN
[2021-03-30] MEDS: racepinephrine 11.25mg/0.5ml nebule ONE ×2 (05:48→06:30)
[2021-03-30] MEDS: potassium Cl 10 mEq/100mL bag IV SCH ×5 (06:00→10:00)
[2021-03-30] MEDS ORDERED: acetaminophen 325mg tablet PO PRN (07:15)
[2021-03-30] MEDS ORDERED: mag hydrox/Alum hydrox/simeth 30ml oral suspension PO PRN (07:15)
[2021-03-30] MEDS ORDERED: ondansetron/PF 4mg/2ml inj IV PRN (07:15)
[2021-03-30] MEDS ORDERED: magnesium hydroxide 30ml (MOM) UD suspension PO PRN (07:15)
[2021-03-30] MEDS: normal saline 1000ml 1,000 ML IV SCH ×2 (07:57→19:23)
[2021-03-30] MEDS: docusate sod 100mg capsule PO SCH ×2 (08:00→19:11)
[2021-03-30] MEDS ORDERED: albuterol 2.5 MG/3 ML nebule NEB SCH (08:00)
[2021-03-30] MEDS: levoFLOXACIN-Levaquin 500mg/D5 100 ML IV SCH (09:14)
[2021-03-30] MEDS: methylPREDNISolone sod succ 125mg/2ml vial IV SCH ×2 (09:14→19:23)
[2021-03-30] MEDS: albuterol 2.5 MG/3 ML nebule NEB SCH ×4 (11:01→23:59)
[2021-03-30] MEDS ORDERED: ASPI-611 PO (11:45)
[2021-03-30 18:00] VITALS: BP 127/64
--- NOTE | 2021-03-30 18:30 | NUR ---
Problems reprioritized. Patient report given, questions answered & plan of care reviewed with KOLE Chen.
[2021-03-30 22:00] VITALS: BP 131/81
[2021-03-31 02:00] VITALS: BP 135/83
[2021-03-31] MEDS: albuterol 2.5 MG/3 ML nebule NEB SCH ×6 (03:16→22:42)
[2021-03-31 06:00] VITALS: BP 142/84
--- NOTE | 2021-03-31 06:03 | NUR ---
Problems reprioritized. Patient report given, questions answered & plan of care reviewed with Aretha SHARIF. Addendum: 03/31/21 at 0604 by April Jacobson RN Amended: Links added.
--- NOTE | 2021-03-31 06:04 | NUR ---
Patient in room PCU 3027. I have received report from KOLE Chen and had the opportunity to ask questions and assume patient care.
[2021-03-31 06:52] LABS: BASOPHILS % (AUTO) 0.1 % (0-1); EOSINOPHILS % (AUTO) 0 % (0-6); HEMOGLOBIN 10.4 g/dl (12.0-16.0); LYMPHOCYTES # (AUTO) 0.4 X10'3 (1.1-4.8); LYMPHOCYTES % (AUTO) 5.7 % (21-51); MEAN CORPUSCULAR HEMOGLOBIN 26.5 PG (27.0-31.0); MEAN CORPUSCULAR HGB CONC 31.5 g/dL (33.0-36.5); MEAN CORPUSCULAR VOLUME 84.3 FL (78-98); MEAN PLATELET VOLUME 8.8 FL (7.4-10.4); MONOCYTES # (AUTO) 0.2 X10'3 (0-0.9); MONOCYTES % (AUTO) 3.2 % (2-12); NEUTROPHILS # (AUTO) 6.8 X10'3 (1.8-7.7); PLATELET COUNT 326 X10'3 (140-440); RED BLOOD COUNT 3.91 X10'6 (4.20-5.60); RED CELL DISTRIBUTION WIDTH 16.3 % (11.5-14.5); WHITE BLOOD COUNT 7.5 X10'3 (4.5-11.0)
[2021-03-31 07:12] LABS: ALBUMIN 2.5 G/DL (3.4-5.0); ANION GAP 0 (8-16); BLOOD UREA NITROGEN 11 MG/DL (7-18); BUN/CREATININE RATIO 23.4 (6.6-38.0); CALCIUM 9.4 MG/DL (8.5-10.1); CHLORIDE 105 MMOL/L (99-107); CREATININE 0.47 MG/DL (0.40-0.90); GLUCOSE 139 MG/DL (70-104); POTASSIUM 4.3 MMOL/L (3.5-5.1); SODIUM 143 MMOL/L (135-145); TOTAL CARBON DIOXIDE 38.1 MMOL/L (24-32); eGFR > 90 ML/MIN
[2021-03-31] MEDS ORDERED: albuterol 2.5 MG/3 ML nebule NEB PRN (07:35)
[2021-03-31] MEDS: Fluticasone/Umeclidin/Vilanter (Trelegy Ellipta 100-62.5-25) IH SCH (08:00)
[2021-03-31] MEDS: docusate sod 100mg capsule PO SCH ×2 (08:00→19:09)
[2021-03-31] MEDS: levoFLOXACIN-Levaquin 500mg/D5 100 ML IV SCH (09:48)
[2021-03-31] MEDS: aspirin 81mg, enteric-coated 1 TAB TABLET.DR PO SCH (09:48)
[2021-03-31] MEDS: atorvastatin 20mg tablet PO SCH (09:48)
[2021-03-31] MEDS: methylPREDNISolone sod succ 125mg/2ml vial IV SCH ×2 (09:49→19:20)
[2021-03-31 11:00] VITALS: BP 125/73
[2021-03-31 15:00] VITALS: BP 136/75
--- NOTE | 2021-03-31 15:18 | NUR ---
Low BMI screen: Pt current wt 41.82kg making BMI 16.9 in EMR however not scaled wt this admit. Current ht 63in however last February 2020 ht 62in and 56.9kg bed scaled wt making BMI 23. Will monitor for updated scaled wt and nutrition intervention needs this admit. Addendum: 03/31/21 at [address] Amended: Links added.
[2021-03-31] MEDS: lactobacillus rhamnosus 10,000 MMU CELLS/CAPSULE PO SCH (19:20)
[2021-04-01 06:19] LABS: ALBUMIN 2.3 G/DL (3.4-5.0); ANION GAP 0 (8-16); BLOOD UREA NITROGEN 10 MG/DL (7-18); BUN/CREATININE RATIO 20.4 (6.6-38.0); CHLORIDE 106 MMOL/L (99-107); CREATININE 0.49 MG/DL (0.40-0.90); GLUCOSE 100 MG/DL (70-104); POTASSIUM 3.8 MMOL/L (3.5-5.1); SODIUM 144 MMOL/L (135-145); TOTAL CARBON DIOXIDE 38.4 MMOL/L (24-32); eGFR > 90 ML/MIN
[2021-04-01 06:25] LABS: BASOPHILS % (AUTO) 0 % (0-1); EOSINOPHILS % (AUTO) 0 % (0-6); HEMATOCRIT 33.5 % (35.0-45.0); HEMOGLOBIN 10.3 g/dl (12.0-16.0); LYMPHOCYTES # (AUTO) 0.7 X10'3 (1.1-4.8); LYMPHOCYTES % (AUTO) 4.9 % (21-51); MEAN CORPUSCULAR HEMOGLOBIN 25.7 PG (27.0-31.0); MEAN CORPUSCULAR HGB CONC 30.8 g/dL (33.0-36.5); MEAN CORPUSCULAR VOLUME 83.4 FL (78-98); MEAN PLATELET VOLUME 8.8 FL (7.4-10.4); MONOCYTES # (AUTO) 0.7 X10'3 (0-0.9); MONOCYTES % (AUTO) 5.1 % (2-12); NEUTROPHILS # (AUTO) 12.9 X10'3 (1.8-7.7); PLATELET COUNT 315 X10'3 (140-440); RED BLOOD COUNT 4.01 X10'6 (4.20-5.60); RED CELL DISTRIBUTION WIDTH 16.7 % (11.5-14.5); WHITE BLOOD COUNT 14.3 X10'3 (4.5-11.0)
--- NOTE | 2021-04-01 06:39 | NUR ---
Patient handoff report given to Chaparrita SHARIF
[2021-04-01 07:00] VITALS: BP 121/91
[2021-04-01] MEDS: albuterol 2.5 MG/3 ML nebule NEB SCH ×5 (07:51→23:35)
[2021-04-01] MEDS: Fluticasone/Umeclidin/Vilanter (Trelegy Ellipta 100-62.5-25) IH SCH (08:00)
[2021-04-01] MEDS: docusate sod 100mg capsule PO SCH ×2 (08:00→20:00)
[2021-04-01] MEDS: aspirin 81mg, enteric-coated 1 TAB TABLET.DR PO SCH (08:03)
[2021-04-01] MEDS: lactobacillus rhamnosus 10,000 MMU CELLS/CAPSULE PO SCH ×2 (08:03→20:35)
[2021-04-01] MEDS: methylPREDNISolone sod succ 125mg/2ml vial IV SCH ×2 (08:06→20:37)
[2021-04-01] MEDS: levoFLOXACIN-Levaquin 500mg/D5 100 ML IV SCH (08:19)
[2021-04-01] MEDS: atorvastatin 20mg tablet PO SCH (08:19)
[2021-04-01 11:00] VITALS: BP 121/65
[2021-04-01 15:00] VITALS: BP 118/65
[2021-04-01 18:00] VITALS: BP 156/41
--- NOTE | 2021-04-01 19:14 | NUR ---
Patient in room PCU 3027. I have received report from KAYLA RN and had the opportunity to ask questions and assume patient care.
[2021-04-01] MEDS: nystatin 500,000 unit/5ML UD oral suspension PO SCH (20:35)
[2021-04-01 22:00] VITALS: BP 147/99
[2021-04-02 02:00] VITALS: BP 133/63
[2021-04-02] MEDS: albuterol 2.5 MG/3 ML nebule NEB SCH ×3 (03:38→10:46)
--- NOTE | 2021-04-02 06:25 | NUR ---
Problems reprioritized. Patient report given, questions answered & plan of care reviewed with PAT RN.
[2021-04-02 06:55] LABS: ALBUMIN 2.5 G/DL (3.4-5.0); ANION GAP 4 (8-16); BLOOD UREA NITROGEN 7 MG/DL (7-18); BUN/CREATININE RATIO 17.9 (6.6-38.0); CALCIUM 9.1 MG/DL (8.5-10.1); CHLORIDE 106 MMOL/L (99-107); CREATININE 0.39 MG/DL (0.40-0.90); GLUCOSE 135 MG/DL (70-104); POTASSIUM 3.6 MMOL/L (3.5-5.1); SODIUM 145 MMOL/L (135-145); TOTAL CARBON DIOXIDE 35.1 MMOL/L (24-32); eGFR > 90 ML/MIN
[2021-04-02 06:59] LABS: BASOPHILS % (AUTO) 0.1 % (0-1); EOSINOPHILS % (AUTO) 0 % (0-6); HEMATOCRIT 33.1 % (35.0-45.0); HEMOGLOBIN 10.8 g/dl (12.0-16.0); LYMPHOCYTES # (AUTO) 0.4 X10'3 (1.1-4.8); LYMPHOCYTES % (AUTO) 4.6 % (21-51); MEAN CORPUSCULAR HEMOGLOBIN 26.7 PG (27.0-31.0); MEAN CORPUSCULAR HGB CONC 32.7 g/dL (33.0-36.5); MEAN CORPUSCULAR VOLUME 81.5 FL (78-98); MEAN PLATELET VOLUME 9.1 FL (7.4-10.4); MONOCYTES # (AUTO) 0.2 X10'3 (0-0.9); MONOCYTES % (AUTO) 2.5 % (2-12); NEUTROPHILS # (AUTO) 7.3 X10'3 (1.8-7.7); NEUTROPHILS % (AUTO) 92.8 % (42-75); PLATELET COUNT 286 X10'3 (140-440); RED BLOOD COUNT 4.06 X10'6 (4.20-5.60); RED CELL DISTRIBUTION WIDTH 16.9 % (11.5-14.5); WHITE BLOOD COUNT 7.9 X10'3 (4.5-11.0)
[2021-04-02 07:11] VITALS: BP 133/94
[2021-04-02] MEDS: methylPREDNISolone sod succ 125mg/2ml vial IV SCH (07:43)
[2021-04-02] MEDS: levoFLOXACIN-Levaquin 500mg/D5 100 ML IV SCH (07:43)
[2021-04-02] MEDS: lactobacillus rhamnosus 10,000 MMU CELLS/CAPSULE PO SCH (07:44)
[2021-04-02] MEDS: atorvastatin 20mg tablet PO SCH (07:44)
[2021-04-02] MEDS: aspirin 81mg, enteric-coated 1 TAB TABLET.DR PO SCH (07:44)
[2021-04-02] MEDS: nystatin 500,000 unit/5ML UD oral suspension PO SCH (07:44)
[2021-04-02] MEDS: docusate sod 100mg capsule PO SCH (07:58)
[2021-04-02] MEDS ORDERED: LEVO500T89 PO (09:53)
[2021-04-02] MEDS ORDERED: PRED10TA23 PO (09:53)
[2021-04-02] MEDS ORDERED: NYST1000 PO (09:54)
== END 2021-04-02 12:30 | disposition home or self-care (01) | DRG 189 ==
LOC: ER 03:31 → ED HOLD 07:18 → PCU 3S 13:55
PROVIDERS: ADMIT Family Medicine; ATTEND Family Medicine
DX: J96.20 Acute and chronic respiratory failure, unspecified whether with hypoxia or hypercapnia (principal); J44.1 Chronic obstructive pulmonary disease with (acute) exacerbation; B37.0 Candidal stomatitis; R00.0 Tachycardia, unspecified; R07.0 Pain in throat; Z20.822 Contact with and (suspected) exposure to COVID-19; I49.3 Ventricular premature depolarization; E87.6 Hypokalemia; J38.6 Stenosis of larynx; Z86.73 Personal history of transient ischemic attack (TIA), and cerebral infarction without residual deficits; Z87.891 Personal history of nicotine dependence; Z88.5 Allergy status to narcotic agent
CPT/HCPCS: 36415; 71045; 80048; 80053; 85025; 87081; 87635; 93005; 94640; 94760; 96374; 99285; G0378; J1100; J1956; J2930; J3480; J7030